=== PATIENT | male | born 2000 | race Caucasian/White ===

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

== ENCOUNTER 2022-06-17 09:44 | Emergency (ER) | payer OTHER ==
[~2022-06-17] VITALS: Ht 185.4 cm; Wt 80.3 kg
[2022-06-17 09:54] VITALS: BP 124/74
[2022-06-17] MEDS ORDERED: MORPHINE SULFATE 4 MG/ML SYR IVP ONE (10:20)
[2022-06-17] MEDS ORDERED: NACL 0.9% 1,000 ML IV ONE (10:20)
[2022-06-17 10:45] LABS: BASOPHILS # (AUTO) 0.1 K/uL (0.00-0.22); BASOPHILS % (AUTO) 0.5 % (0.0-2.0); EOSINOPHILS % (AUTO) 0.2 % (0.0-4.0); HEMATOCRIT 45.5 % (36-52); HEMOGLOBIN 15.6 g/dL (12.0-18.0); LYMPHOCYTES # (AUTO) 1.1 K/uL (2.0-11.5); LYMPHOCYTES % (AUTO) 8.9 % (20.5-51.1); MEAN CORPUSCULAR HEMOGLOBIN 31 pg (27-31); MEAN CORPUSCULAR HGB CONC 34 g/dL (33-37); MEAN CORPUSCULAR VOLUME 91.5 fL (80-94); MONOCYTES # (AUTO) 0.6 K/uL (0.8-1.0); MONOCYTES % (AUTO) 4.8 % (1.7-9.3); NEUTROPHILS # (AUTO) 10.2 K/uL (1.8-7.7); NEUTROPHILS % (AUTO) 85.6 % (42.2-75.2); PLATELET COUNT (AUTO) 274 K/uL (140-450); RED BLOOD CELL COUNT(AUTO) 4.97 MIL/uL (4.20-6.10); RED CELL DISTRIBUTION WIDTH 13.1 % (11.6-13.7); WHITE BLOOD COUNT (AUTO) 11.9 K/uL (4.5-11.0)
[2022-06-17 10:49] LABS: APPEARANCE,URINE CLEAR (CLEAR); BILIRUBIN,URINE NEGATIVE (NEGATIVE); BLOOD, URINE NEGATIVE (NEGATIVE); COLOR,URINE YELLOW (YELLOW); LEUKOCYTE ESTERASE ,URINE NEGATIVE (NEGATIVE); NITRITE, URINE NEGATIVE (NEGATIVE); UGLUCOSE NEGATIVE (NEGATIVE)
--- NOTE | 2022-06-17 11:02 | NUR ---
22y/o male BIBA with c/o ABD pain, and N/V/D xToday. Pt reports waking up at 0300 this morning with a stabbing like 10/10 pain to LLQ that radiates to umbilicus area. Since symptoms started, pt states having 5 episodes of vomiting and 3 episodes of diarrhea. Pt denies taking meds for symptoms, denies fevers, chills, or recent sick contacts. Pt placed in gown and bedside cardiac surgeon.
[2022-06-17 11:03] LABS: ALBUMIN 4.3 g/dL (3.4-5.0); ANION GAP 13.5 (8-16); CARBON DIOXIDE 26.6 mmol/L (21-32); CREATININE 0.9 mg/dL (0.6-1.3); POTASSIUM 4.1 mmol/L (3.5-5.1); TOTAL BILIRUBIN 0.8 mg/dL (0.0-1.0)
--- NOTE | 2022-06-17 11:33 | NUR ---
Pt taken to CT via [facility].
--- NOTE | 2022-06-17 11:42 | NUR ---
Pt brought back from CT via [facility].
[2022-06-17] MEDS ORDERED: ONDA-188 PO (13:06)
[2022-06-17] MEDS ORDERED: ACET-10509 PO (13:06)
[2022-06-17] MEDS ORDERED: BEN10 PO (13:06)
[2022-06-17 13:18] VITALS: BP 122/66
--- NOTE | 2022-06-17 13:18 | NUR ---
Patient discharged with v/s stable. Written and verbal after care instructions about Viral gastroenteritis given and explained. Patient alert, oriented and verbalized understanding of instructions. Ambulatory with steady gait. All questions addressed prior to discharge. ID band removed. Patient advised to follow up with PMD. Rx of Acetaminophen, Zofran, and Bentyl given. Patient educated on indication of medication including possible reaction and side effects. Opportunity to ask questions provided and answered.
== END 2022-06-17 13:18 | disposition home or self-care (01) ==
LOC: MED 09:44
DX: R10.32 Left lower quadrant pain (principal)
CPT/HCPCS: 36415; 74177; 80053; 81003; 83690; 85025; 96374; 99285; J2270; Q9967; J7030

== ENCOUNTER 2022-12-07 12:27 | Emergency (ER) | payer OTHER ==
[~2022-12-07] VITALS: Ht 185.4 cm; Wt 83.0 kg
[~2022-12-07 12:27] MED LIST: ACET-10509 PO; BEN10 PO; ONDA-188 PO
[2022-12-07 12:33] VITALS: BP 127/79
--- NOTE | 2022-12-07 13:35 | NUR ---
AMB. WITH NO DIFFICULTY, NO ACUTE DISTRESS
[2022-12-07] MEDS ORDERED: IBUPROFEN 600 MG TAB PO ONE (14:45)
[2022-12-07] MEDS ORDERED: ACETAMINOPHEN EXTRA STRENGTH 500 MG TAB PO ONE (14:45)
[2022-12-07 15:04] LABS: APPEARANCE,URINE CLEAR (CLEAR); BILIRUBIN,URINE NEGATIVE (NEGATIVE); BLOOD, URINE NEGATIVE (NEGATIVE); COLOR,URINE YELLOW (YELLOW); LEUKOCYTE ESTERASE ,URINE NEGATIVE (NEGATIVE); NITRITE, URINE NEGATIVE (NEGATIVE); UGLUCOSE NEGATIVE (NEGATIVE)
[2022-12-07 15:25] LABS: BASOPHILS % (AUTO) 0.3 % (0.0-2.0); EOSINOPHILS % (AUTO) 0.6 % (0.0-4.0); HEMATOCRIT 44.9 % (36-52); HEMOGLOBIN 15.3 g/dL (12.0-18.0); LYMPHOCYTES # (AUTO) 2.6 K/uL (2.0-11.5); LYMPHOCYTES % (AUTO) 38.9 % (20.5-51.1); MEAN CORPUSCULAR HEMOGLOBIN 32 pg (27-31); MEAN CORPUSCULAR HGB CONC 34 g/dL (33-37); MEAN CORPUSCULAR VOLUME 92.5 fL (80-94); MONOCYTES # (AUTO) 0.7 K/uL (0.8-1.0); MONOCYTES % (AUTO) 10.8 % (1.7-9.3); NEUTROPHILS # (AUTO) 3.3 K/uL (1.8-7.7); NEUTROPHILS % (AUTO) 49.4 % (42.2-75.2); PLATELET COUNT (AUTO) 281 K/uL (140-450); RED BLOOD CELL COUNT(AUTO) 4.85 MIL/uL (4.20-6.10); RED CELL DISTRIBUTION WIDTH 13.8 % (11.6-13.7); WHITE BLOOD COUNT (AUTO) 6.7 K/uL (4.5-11.0)
[2022-12-07 15:43] LABS: ALBUMIN 4.6 g/dL (3.4-5.0); ANION GAP 9.9 (8-16); CARBON DIOXIDE 31.3 mmol/L (21-32); CREATININE 0.9 mg/dL (0.6-1.3); POTASSIUM 4.2 mmol/L (3.5-5.1); TOTAL BILIRUBIN 1.1 mg/dL (0.0-1.0)
[2022-12-07] MEDS ORDERED: SENN1TAB40 PO (15:53)
[2022-12-07] MEDS ORDERED: MIRABULK PO (15:53)
[2022-12-07] MEDS ORDERED: NAPR-54 PO (15:53)
--- NOTE | 2022-12-07 16:03 | NUR ---
Patient discharged with v/s stable. Written and verbal after care instructions given and explained. Patient alert, oriented and verbalized understanding of instructions. Ambulatory with steady gait. All questions addressed prior to discharge. ID band removed. Patient advised to follow up with PMD. Rx of SENNA, MIRALAX given. Patient educated on indication of medication including possible reaction and side effects. Opportunity to ask questions provided and answered.
== END 2022-12-07 16:03 | disposition home or self-care (01) ==
LOC: MED 12:27
DX: K59.00 Constipation, unspecified (principal); R10.31 Right lower quadrant pain; Z79.899 Other long term (current) drug therapy
CPT/HCPCS: 36415; 80053; 81003; 83690; 85025; 99284